=== PATIENT | male | born 1980 | race Caucasian/White ===

== ENCOUNTER 2020-04-12 15:11 | Outpatient (CLI) | payer OTHER ==
--- NOTE | 2020-04-12 16:36 | MRI Report ---
PROCEDURE: Brain W/O INDICATIONS: DIZZINESS AND GIDDINESS TECHNIQUE: Noncontrast axial T1 spin echo, axial T2 fast spin echo, sagittal and axial FLAIR, coronal T2 fast sp in echo, axial gradient echo, axial diffusion and ADC through the brain. COMPARISON: None. FINDINGS: Image quality: Excellent. CSF Spaces: Basal cisterns are patent. No extra-axial fluid collections. Ventricles are normal in size and shape. Brain: No intracranial masses or hemorrhage. Cedillo/white matter interface is normal. Brainstem appe ars normal. Diffusion-weighted images demonstrate no acute ischemic insult. No chronic ischemic ins ults. Normal intravascular flow voids are present. Skull and face: Calvarium has normal marrow signal. Orbits appear normal. Sinuses: Mild mucosal thickening in the bilateral ethmoid and right frontal sinuses. Mastoids are domonique ar. IMPRESSION: 1. No acute process. 2. No recent infarct. 3. Sinus disease. Reviewed by: Paul De Leon MD on 04/12/2020 4:35 PM PDT Approved by: Paul De Leon MD on 04/12/2020 4:35 PM PDT Station ID: [id number]
== END 2020-04-12 15:12 | disposition home or self-care (01) ==
LOC: DI 15:11
PROVIDERS: ATTEND General Practice
DX: J34.89 Other specified disorders of nose and nasal sinuses (principal)
CPT/HCPCS: 70551